=== PATIENT | male | born 1985 | race Two or more races ===

== ENCOUNTER 2020-06-04 09:13 | Outpatient (CLI) | payer OTHER ==
[~2020-06-04] VITALS: Ht 175.3 cm; Wt 72.6 kg
== END 2020-06-04 19:25 | disposition home or self-care (01) ==
LOC: OFIC 805 09:13
PROVIDERS: ATTEND Otolaryngology
DX: R09.81 Nasal congestion (principal); J34.2 Deviated nasal septum; J34.89 Other specified disorders of nose and nasal sinuses

== ENCOUNTER 2020-12-14 09:30 | Inpatient (IN) | payer OTHER ==
[~2020-12-14] VITALS: Ht 177.8 cm; Wt 74.8 kg
[2020-12-22] MEDS ORDERED: RECTICARE30 GM TOP (10:19)
== END 2020-12-22 12:10 | disposition home or self-care (01) | DRG 395 ==
LOC: SURH 12-21 09:30 → O/R 12-21 13:13 → SURH 12-21 17:53
PROVIDERS: ADMIT Surgery; ATTEND Surgery
PROC: 0DBP8ZZ Excision of Rectum, Via Natural or Artificial Opening Endoscopic (ICD-10-PCS; principal; 2020-12-21 14:00)
DX: D12.8 Benign neoplasm of rectum (principal); K62.89 Other specified diseases of anus and rectum; Z80.0 Family history of malignant neoplasm of digestive organs